=== PATIENT | male | born 1945 | race Caucasian/White ===

== ENCOUNTER 2018-04-05 10:13 | Inpatient (IN) ==
--- NOTE | 2018-04-04 17:50 | Discharge Summary ---
<Rima Trevino E - Last Filed: 04/04/18 17:47> Date of Encounter: 04/04/18 - Discharge Diagnosis (1) Status post right hip replacement Priority: Primary Status: Acute (2) Arthritis of right hip Priority: Primary Status: Chronic (3) Hypertension Priority: Secondary Status: Chronic Qualifiers: Hypertension type: unspecified Qualified Code(s): I10 - Essential (primary ) hypertension (4) Chronic pain Priority: Secondary Status: Acute Qualifiers: Chronic pain type: other chronic pain Qualified Code(s): G89.29 - Other chronic pain (5) GERD (gastroesophageal reflux disease) Priority: Secondary Status: Chronic Qualifiers: Esophagitis presence: esophagitis presence not specified Qualified Code(s) : K21.9 - Gastro-esophageal reflux disease without esophagitis (6) Hyperlipidemia Priority: Secondary Status: Chronic Qualifiers: Hyperlipidemia type: unspecified Qualified Code(s): E78.5 - Hyperlipidemia , unspecified - Hospital Course Hospital course: Mr. Nagy is a 72 year old male - Time Spent with Patient Total time spent providing and/or coordinating discharge services: - Discharge Medications Home Medications: Aspirin Enteric Coated [Aspirin EC] 325 mg PO BID 10 Days #20 tablet. [Rx] Oxycodone HCl 5 mg PO Q6H PRN 7 Days #28 tablet 04/04/18 [Rx] Atorvastatin [Lipitor] 40 mg PO HS 04/05/18 [History] Diltiazem HCl [Diltiazem ER] 180 mg PO BID 04/05/18 [History] Gabapentin [Neurontin] 600 mg PO TID 04/05/18 [History] HYDROcodone/Acet 10/325 mg [[place] 10-325 mg] 1 tab PO Q8H PRN 04/05/18 [History] Lisinopril/Hydrochlorothiazide [Zestoretic 20-12.5 mg Tablet] 1 tab PO DAILY [History] Omeprazole [PriLOSEC] 40 mg PO DAILY 04/05/18 [History] Terazosin HCl 2 mg PO HS 04/05/18 [History] Terazosin [Hytrin] 5 mg PO HS 04/05/18 [History] Allergies/Adverse Reactions: 3 Allergy/AdvReac Type Severity Reaction Status Date / Time codeine AdvReac Vomiting Verified 04/05/18 10:55 Primary care physician: MAHESH Hobbs - Patient Status Disposition: Home, Self-Care Condition: Good - Discharge Instructions Follow Up With: Vanessa Burnette CNP [Primary Care Provider] - <Tarun Little Jacques - Last Filed: 04/06/18 06:15> Orders not resulted at time of discharge: Pending orders 04/05/18 01:00 XR hip complete RT [XR] Routine Hemoglobin and Hematocrit [HEME] Routine 04/05/18 10:27 US anesthesia pain block [US] Routine Date of Encounter: 04/06/18 Time of Encounter: 06:14 - Discharge Diagnosis (1) Arthritis of right hip Priority: Primary Status: Chronic (2) Hypertension Priority: Secondary Status: Chronic Qualifiers: Hypertension type: unspecified Qualified Code(s): I10 - Essential (primary ) hypertension (3) Chronic pain Priority: Secondary Status: Acute Qualifiers: Chronic pain type: other chronic pain Qualified Code(s): G89.29 - Other chronic pain (4) GERD (gastroesophageal reflux disease) Priority: Secondary Status: Chronic Qualifiers: Esophagitis presence: esophagitis presence not specified Qualified Code(s) : K21.9 - Gastro-esophageal reflux disease without esophagitis (5) Hyperlipidemia Priority: Secondary Status: Chronic Qualifiers: Hyperlipidemia type: unspecified Qualified Code(s): E78.5 - Hyperlipidemia , unspecified (6) Status post right hip replacement Priority: Primary Status: Acute (7) Acute blood loss anemia Priority: Primary Status: Acute - Hospital Course Hospital course: Mr. Nagy is a 72 year old male Status post right total hip replacement The patient had an uneventful postoperative course. They received antibiotics and physical therapy and were discharged in stable condition. There will follow -up in the office in 2 weeks. - Time Spent with Patient Total time spent providing and/or coordinating discharge services: Primary care physician: MAHESH Hobbs - Patient Status Functional capacity at discharge: uses cane/walker Overall status at discharge: patient is progressing back to baseline
[2018-04-05] MEDS ORDERED: Famotidine 20 MG/2 ML VIAL IVP ONE (10:26)
[2018-04-05] MEDS ORDERED: Pregabalin 75 MG CAPSULE PO ONE (10:27)
[2018-04-05] MEDS ORDERED: Ringers Solution, Lactated 1,000 ML IVC SCH (10:30)
--- NOTE | 2018-04-05 10:34 | History & Physical Report ---
Date of Encounter: 04/05/18 Time of Encounter: 10:33 24 Hour HP Update - Instructions Instructions: If the History and Physical is less than 30 days old and was completed prior to A.M. admission and or procedure and has NOT been updated on calendar day of procedure please complete this update prior to performing procedure. - Update Patient reports changes in Medical Condition: No Changes in examination, assessment, or condition: No Changes in Medication: No Preop tests/diagnostics Reviewed: Yes Surgery Remains Indicated: Yes Consent for Planned Operative Procedure(s) Verified: Yes - Pre-Operative Checklist Preoperative Checklist Indicated: No Prophylactic Antibiotic Ordered: Yes Is VTE Prophylaxis Indicated?: Yes
[2018-04-05] MEDS ORDERED: CeFAZolin Syr 2,000MG/20 ML 2,000 MG/20 ML SYRINGE IVPB ONE (10:35)
[2018-04-05] MEDS ORDERED: Albuterol 2.5 MG/3 ML NEBULIZER IH ONE (10:35)
--- NOTE | 2018-04-05 10:52 | Anesthesia Evaluation PreOp ---
Date of Encounter: 04/05/18 Time of Encounter: 11:00 - Past History Planned Operation: Rt THR Cardiac History: HTN, Hyperlipidemia, Arrhythmia (on Diltiazem) Pulmonary History: Denies Any Significant HX ELECTRICAL SYSTEMS DESIGN ENGINEER History: Denies Any Significant HX Other Medical History: GERD Anesthesia History: No Prior Anesthetic Complications Alcohol Use: none, heavy Drug use: none Medications and Allergies Atorvastatin [Lipitor] 40 mg PO HS 12/31/15 [History] Diclofenac Sodium [Voltaren] 75 mg PO DAILY 12/31/15 [History] Diltiazem HCl [Cardizem LA] 360 mg PO DAILY 12/31/15 [History] Gabapentin [Neurontin] 600 mg PO TID 12/31/15 [History] Lisinopril-HCTZ 20-12.5 [Prinzide 20-12.5] 1 each PO DAILY 12/31/15 [History] Omeprazole [PriLOSEC] 40 mg PO DAILY 12/31/15 [History] Terazosin [Hytrin] 2 mg PO HS 12/31/15 [History] Aspirin Enteric Coated [Aspirin EC] 325 mg PO BID 10 Days #20 tablet. [Rx] Oxycodone HCl 5 mg PO Q6H PRN 7 Days #28 tablet 04/04/18 [Rx] 3 Allergy/AdvReac Type Severity Reaction Status Date / Time codeine Allergy See Verified 12/31/15 18:55 Comments - Meds/Allergy Pre-op Review Medications Reviewed: Yes Allergies Reviewed: Yes Beta Blockers on Current Med List: No Anesthesia Results - Labs Laboratory Tests 03/29/18 03/29/18 15:55 15:55 Hgb 13.1 Hct 38.3 Plt Count 163 Sodium 139 Potassium 3.9 BUN 14 Creatinine 1.22 - Imaging EKG: report reviewed (SR) Anesthesia Exam O2 Sat Height 1.65 m Height 1.65 m Height 1.65 m Weight 76.657 kg Weight 76.657 kg Weight 76.657 kg O2 Sat by Pulse Oximetry 95 Vital Signs Temp Pulse Resp BP Pulse Ox 98.0 F 100 18 133/92 95 04/05/18 10:44 04/05/18 10:44 04/05/18 10:44 04/05/18 10:44 04/05/18 10:44 Height: 5'5 Weight: 169 lbs NPO (# of Hours): MN Pain Scale: 0 - HEENT Pupil (Motor): Pupils equal, EOMI Mallampati: III Teeth: Edentulous Oral Opening: Less than or equal to 3 - ELECTRICAL SYSTEMS DESIGN ENGINEER LOC: Oriented ELECTRICAL SYSTEMS DESIGN ENGINEER Motor: Normal RUE, Normal LUE, Normal RLE, Normal LLE, Normal Face ELECTRICAL SYSTEMS DESIGN ENGINEER Sensory: Normal: RUE, LUE, RLE, LLE, Face - Cardiac Rhythm: Regular Murmur: None JVD: No Carotid Bruit: No - Pulmonary Breath Sounds: bilateral Clear Respiratory Effort: Symmetrical Anesthesia Assess/Plan ASA Score: [address] Scale for Level of Consciousness: Cooperative, oriented, and tranquil Anesthetic Plan: General, Regional Monitoring Plan: Standard Monitors Recovery Plan: PACU (Discussed GA and RA (Fascia Iliaca Block), agrees to proceed)
[2018-04-05] MEDS ORDERED: Tetracaine/PF 20 MG/2 ML AMPUL ONE (11:03)
[2018-04-05] MEDS ORDERED: Ethanol\\Acetic Acid\\Na Ace\\Ben 1,000 ML IRRIG.SOLN IR ONE (11:32)
--- NOTE | 2018-04-05 12:08 | Anesthesia Procedures ---
Date of Encounter: 04/05/18 Time of Encounter: 10:20 Procedures: Anesthesia - Nerve Block Procedure Date: 04/05/18 Time: 12:00 Allergies/Adv Reactions: NKDA Pre-op Diagnosis: Rt Hip OA Surgical Procedure: Rt Total Hip Replacement Checklist: Correct Patient Identifier Correct side: Right Blood Thinner: No Monitor Applied: EKG, BP, Pulse Oximetry Supplemental Oxygen via Nasal Cannula (L/min): 2 Sedation: Versed (mg): 2 Sedation: Fentanyl (mcg): 50 Indication: Post Op Analgesia Pre-op Neuro Deficits: No Block Type: Other (Fascia Iliaca) Catheter placed: No Depth at skin (cm): 2 Sterile Technique: Yes Ultrasound used: Yes Anatomy identified: Yes Visual spread of Local: Yes Neuro Stimulation: No Blood on Needle Aspiration: No Smooth Injection of Local: Yes Pain with Injection of Local: No Prep: Chlorhexadine Needle: 22 x 50 mm Stimuplex Local: Tetracaine (20mg), Ropivacaine (0.25) Volume (cc): 60 Number of Attempts: 1 Complications: None/effective block Vitals: Vital Signs/O2 Sat/Glucose, Most Current Temp Pulse Resp BP Pulse Ox 04/05/18 11:52 82 16 134/87 100 04/05/18 10:44 98.0 F 100 18 133/92 95
[2018-04-05] MEDS ORDERED: *HR* PHENYLEPHRINE 1,000 MCG/10 ML SYRINGE IVP ONE (12:38)
[2018-04-05] MEDS ORDERED: *HR* Propofol 200 MG/20 ML VIAL IVP ONE ×2 (12:38→12:41)
[2018-04-05] MEDS ORDERED: *HR* Midazolam HCl 2 MG/2 ML VIAL ONE ×3 (12:38→12:41)
[2018-04-05] MEDS ORDERED: *HR* FentaNYL (PF) 100 MCG/2 ML VIAL ONE ×3 (12:38→12:41)
[2018-04-05] MEDS ORDERED: EPHEDrine 50 MG/ML VIAL ONE (12:38)
[2018-04-05] MEDS ORDERED: Lidocaine -MPF 2% 2 ML VIAL ONE ×2 (12:38→12:41)
[2018-04-05] MEDS ORDERED: *HR* Succinylcholine 200 MG/10 ML VIAL IVP ONE (12:41)
[2018-04-05] MEDS ORDERED: Ondansetron 4 MG/2 ML VIAL IVP PRN ×2 (12:44→14:35)
[2018-04-05] MEDS ORDERED: *HR* OxyCODONE Immed Rel 5 MG TABLET PO PRN (12:44)
[2018-04-05] MEDS ORDERED: Dexamethasone 4 MG/ML VIAL ONE (12:56)
--- NOTE | 2018-04-05 13:28 | Orthopedic Operative Note ---
Date of procedure: 04/05/18 Pre-op diagnosis: Right hip arthritis Post-op diagnosis: same Procedure: Procedure: Right Total Hip Replacment robotic-assisted Estimated blood loss: 200 cc Hardware: Metal and polyethylene replacement. Phyllis DM Cup: 54 cup Femoral size 7 stem Head: 12 head with Laura Procedural Notes: Grade 4 arthritic changes femoral head acetabular socket, procedure performed with robotic assistance. Operative leg 6 mm shorter as measured by preoperative CT Operative procedure: The patient was brought to the operating room and placed on the operating room table. After general anesthesia was administered the patient was placed in the lateral decubitus position with the operative leg up. All pressure points were padded appropriately and the head was stabilized in the neutral position. The operative extremity was prepped and draped in the sterile surgical fashion patient received IV antibiotic prior to skin incision. 3 Steinmann pins were placed in the iliac crest 3 cm proximal to the anterior superior iliac spine this was for the robotic-assisted sensor. This was done through a small 2 cm incision. A standard posterior approach is made to the operative hip, the incision was made through the skin and subcutaneous tissue hemostasis was obtained with Bovie cautery. Using careful sharp dissection the fascia was identified and incised exposing the external rotators. The femoral checkpoint was placed leg length was measured at this time utilizing robotic assistance. The external rotators were released off the greater trochanter and tagged with # 2 FiberWire suture. The capsule was T'd open and the hip was brought into internal rotation. Patient noted to have grade 4 arthritic changes femoral head. The femoral neck cut was made at the appropriate level roughly Xmm proximal to the lesser trochanter aced on preoperative templating. An anterior capsulotomy was performed for the anterior retractor. Soft tissues removed from the acetabulum. Patient noted to have grade 4 arthritic changes acetabulum. The acetabulum checkpoint was placed confirmed. The acetabulum was then mapped with robotic assistance. Based on the preoperative plan the acetabulum was reamed in one step with a 53 reamer. The 54 acetabulum was impacted with robotic assistance and 40 degrees of abduction and 20 degrees of anteversion. The hip was brought back in to internal rotation and prepared with the farebox repairer followed by the canal finder followed by the reaming process to a size 78 broaching process in 20 degrees anteversion. It was broached up to the appropriate size 8. Trial reduction revealed leg lengths close to normal. The femoral implant was impacted in place in 20 degrees of anteversion. Trial reduction found the hip to be stable with 7 head and Laura. The trials were removed and the real implants were impacted in place. The hip was reduced, patient had robotic confirmed leg length of 8 mm longer than the contralateral side. The hip had excellent stability with forward flexion to 90 degrees adduction of 30 degrees and internal rotation of 60 degrees. The hip had no shuck. The hips after 2 minutes with a antibacterial solution. The PA close the hip. It was irrigated out with 2 L of pulse irrigation. The checkpoints were removed , Steinmann pins were removed. The hip was closed by the PA. The deep tissue was irrigated and closed deep with #1 PDS suture superficially with 0 PDS suture and skin was closed with Dermabond and zip tie. The patient was placed in a sterile dressing and abduction pillow. The patient was extubated and transferred to the recovery room in stable condition. Anesthesia: GETA Surgeon: Tarun Little Was there an store assistant present: Yes Roof Truss Detailer: Nikki Jackson Estimated blood loss (cc): 200 Condition: stable Disposition: PACU
[2018-04-05] MEDS ORDERED: Lidocaine -MPF 4% 5 ML AMPUL ONE (13:29)
[2018-04-05] MEDS: *HR* FentaNYL (PF) 100 MCG/2 ML VIAL IVP PRN ×2 (13:55→14:05)
--- NOTE | 2018-04-05 14:34 | Anesthesia Evaluation Post Op ---
Date of Encounter: 04/05/18 Time of Encounter: 14:35 - Vital Signs Vital Signs: Vital Signs/O2 Sat/Glucose, Most Current Temp Pulse Resp BP Pulse Ox 04/05/18 14:28 98.2 F 81 16 128/70 98 04/05/18 14:18 98.2 F 82 16 128/72 98 04/05/18 14:08 97.6 F 82 16 121/72 98 04/05/18 13:58 97.8 F 86 16 118/86 97 04/05/18 13:48 97.8 F 83 12 106/88 98 04/05/18 12:07 81 16 108/74 100 04/05/18 11:52 82 16 134/87 100 04/05/18 10:44 98.0 F 100 18 133/92 95 - Lungs Lungs: Clear Ascult./Percussion - Airway Airway: Non-obstructed - Cardiovascular Regular Rate - Mental Status Mental Status: Alert & Oriented, Answers Appropriately - Pain Pain Scale: 0 - Nausea Vomiting Nausea Vomiting: Not Present - Hydration Hydration: Ice chips - Discharge PostOp Status: Transfer Patient to floor
[2018-04-05] MEDS ORDERED: MOM Conc 10 ML UD.LIQ PO PRN (14:35)
[2018-04-05] MEDS ORDERED: traMADol 50 MG TABLET PO PRN (14:35)
[2018-04-05] MEDS ORDERED: Sennosides 8.6 MG TABLET PO PRN (14:35)
[2018-04-05] MEDS ORDERED: Naloxone 0.4 MG/ML INJ IVP PRN (14:35)
[2018-04-05] MEDS ORDERED: Temazepam 15 MG CAPSULE PO PRN (14:35)
[2018-04-05] MEDS ORDERED: *HR* OxyCODONE/APAP 5/325 TABLET PO PRN (14:35)
[2018-04-05 15:33] LABS: Hematocrit 33.9 % (37.5-50.1); Hemoglobin 11.7 g/dL (12.9-16.9)
[2018-04-05] MEDS: *HR* OxyCODONE Immed Rel 5 MG TABLET PO PRN ×2 (15:35→20:36)
[2018-04-05] MEDS: Ringers Solution, Lactated 1,000 ML IVC SCH ×2 (15:42→20:37)
[2018-04-05] MEDS: Ascorbic Acid 500 MG TABLET PO SCH (17:11)
[2018-04-05] MEDS: *HR* Enoxaparin 30 MG/0.3 ML SYRINGE SQ SCH (17:12)
[2018-04-05] MEDS ORDERED: *HR* Enoxaparin 30 MG/0.3 ML SYRINGE SQ SCH (18:00)
[2018-04-06 01:05] LABS: Hematocrit 29.5 % (37.5-50.1); Hemoglobin 10.2 g/dL (12.9-16.9)
[2018-04-06 01:25] LABS: BUN/Creatinine Ratio 16 (6-26); Blood Urea Nitrogen 17 mg/dL (8-23); Calcium 8.4 mg/dL (8.6-10.3); Carbon Dioxide 26 mEq/L (23-29); Chloride 103 mEq/L (98-107); Glucose 164 mg/dL (70-105); Osmolality,Calculated 285 (280-300); Potassium 4.1 mEq/L (3.5-5.1); Sodium 135 mEq/L (136-145); eGFR For African Americans > 60 (> 60); eGFR For Non-African Americans > 60 (> 60)
[2018-04-06] MEDS: *HR* Enoxaparin 30 MG/0.3 ML SYRINGE SQ SCH ×2 (04:51→17:20)
[2018-04-06] MEDS: *HR* OxyCODONE Immed Rel 5 MG TABLET PO PRN ×3 (04:54→21:28)
--- NOTE | 2018-04-06 06:16 | Orthopedics Progress Note ---
Date of Encounter: 04/06/18 Time of Encounter: 06:16 - Assessment and Plan (1) Arthritis of right hip Current Visit: No Status: Chronic (2) Hypertension Current Visit: No Status: Chronic Qualifiers: Hypertension type: unspecified Qualified Code(s): I10 - Essential (primary ) hypertension (3) Chronic pain Current Visit: No Status: Acute Qualifiers: Chronic pain type: other chronic pain Qualified Code(s): G89.29 - Other chronic pain (4) GERD (gastroesophageal reflux disease) Current Visit: No Status: Chronic Qualifiers: Esophagitis presence: esophagitis presence not specified Qualified Code(s) : K21.9 - Gastro-esophageal reflux disease without esophagitis (5) Hyperlipidemia Current Visit: No Status: Chronic Qualifiers: Hyperlipidemia type: unspecified Qualified Code(s): E78.5 - Hyperlipidemia , unspecified (6) Status post right hip replacement Current Visit: No Status: Acute (7) Acute blood loss anemia Current Visit: Yes Status: Acute Subjective Interval history: Patient was seen this morning doing well without complaints. Afebrile vital signs stable. Operative extremity: Neurovascularly intact Dressing clean dry and intact Calves nontender Assessment and plan: Continue with postoperative care Hemoglobin 10.2 discharged today Objective Vital signs: Vital Signs Temp Pulse Resp BP Pulse Ox 04/06/18 04:50 99.1 F 96 17 134/87 96 04/05/18 23:48 98.2 F 105 17 109/75 97 04/05/18 19:10 98.2 F 107 17 124/82 96 04/05/18 18:03 98.1 F 106 18 132/70 97 04/05/18 17:00 97.7 F 104 18 115/77 99 04/05/18 16:00 97.7 F 95 18 126/80 91 04/05/18 15:38 97.5 F L 85 18 135/88 96 04/05/18 15:37 97.5 F L 85 18 135/88 96 04/05/18 15:04 94 04/05/18 14:42 97.1 F L 84 14 123/77 100 04/05/18 14:28 98.2 F 81 16 128/70 98 04/05/18 14:18 98.2 F 82 16 128/72 98 04/05/18 14:08 97.6 F 82 16 121/72 98 04/05/18 13:58 97.8 F 86 16 118/86 97 04/05/18 13:48 97.8 F 83 12 106/88 98 04/05/18 12:07 81 16 108/74 100 04/05/18 11:52 82 16 134/87 100 04/05/18 10:44 98.0 F 100 18 133/92 95 Intake and Output 04/05/18 04/05/18 04/06/18 15:59 23:59 07:59 Intake Total 320 / 320 1100 / 1100 Output Total 200 / 200 300 / 300 Balance 120 / 120 1100 / 1100 -300 / -300 Intake: IV Fluids 320 / 320 1100 / 1100 Lactated Ringers 1,000 ML @ 75 300 / 300 1000 / 1000 mls/hr IVC .[id number] [facility] Rx#: [id number] Ancef Syringe 2,000 MG/20 ML 2, 20 / 20 000 mg In 20 ml @ 200 mls/hr IVPB PREOP ONE Rx#:[id number] Ancef 2,000 MG In 0.9 % Sodium 100 / 100 Chloride 100 ML @ 200 mls/hr IVPB Q8H [facility] Rx#:[id number] Output: Urine 300 / 300 Estimated Blood Loss 200 / 200 Other: # Voids 1 Weight 76.657 kg - Labs CBC & BMP: 04/06/18 00:34 04/06/18 00:34 Labs: Abnormal lab results Hgb 10.2 g/dL (12.9-16.9) L D 04/06/18 00:34 Hct 29.5 % (37.5-50.1) L 04/06/18 00:34 Sodium 135 mEq/L (136-145) L 04/06/18 00:34 Glucose 164 mg/dL (70-105) H 04/06/18 00:34 Calcium 8.4 mg/dL (8.6-10.3) L 04/06/18 00:34 - VTE Documentation of Mechanical Device: Venous foot pump, device Consult Discharge Plan - Plan Referrals: Vanessa Burnette, VIDEO GAME DEVELOPER [Primary Care Provider] -
[2018-04-06] MEDS: Ascorbic Acid 500 MG TABLET PO SCH ×2 (09:22→17:20)
[2018-04-06] MEDS: Multivit/Ca/Min/Fe/FA 1 TAB TABLET PO SCH (09:22)
--- NOTE | 2018-04-06 11:22 | Event Note ---
Date of Encounter: 04/06/18 Time of Encounter: 11:21 PCR- POD#1 status post right total hip replacement Little 04/05/18 PCR - Patient seen at bedside. Labwork and medications reviewed. 04/05: H/H 10.2/29.5 Pain control: Adequate - adding lidoderm patches to aid in local pain relief Participating in PT. Recommending HH vs ECF. All questions and concerns addressed. Educated on use of incentive spirometer, ambulation, and hydration. Patient educated on post-operative restrictions and care. Addressed: see above. D/C plan: ECF pending authorization
[2018-04-06] MEDS: Ringers Solution, Lactated 1,000 ML IVC SCH (17:27)
[2018-04-07 01:23] LABS: Hemoglobin 8.2 g/dL (12.9-16.9)
[2018-04-07 01:36] LABS: BUN/Creatinine Ratio 20 (6-26); Blood Urea Nitrogen 22 mg/dL (8-23); Calcium 8.4 mg/dL (8.6-10.3); Carbon Dioxide 27 mEq/L (23-29); Chloride 102 mEq/L (98-107); Glucose 107 mg/dL (70-105); Osmolality,Calculated 282 (280-300); Potassium 4.1 mEq/L (3.5-5.1); Sodium 134 mEq/L (136-145); eGFR For African Americans > 60 (> 60); eGFR For Non-African Americans > 60 (> 60)
[2018-04-07] MEDS: *HR* OxyCODONE Immed Rel 5 MG TABLET PO PRN ×3 (04:42→17:29)
[2018-04-07] MEDS: *HR* Enoxaparin 30 MG/0.3 ML SYRINGE SQ SCH ×2 (04:43→17:29)
[2018-04-07] MEDS ORDERED: Furosemide 20 MG/2 ML VIAL IVP ONE (06:23)
--- NOTE | 2018-04-07 06:24 | Orthopedics Progress Note ---
Date of Encounter: 04/07/18 Time of Encounter: 06:23 - Assessment and Plan (1) Arthritis of right hip Current Visit: No Status: Chronic (2) Hypertension Current Visit: No Status: Chronic Qualifiers: Hypertension type: unspecified Qualified Code(s): I10 - Essential (primary ) hypertension (3) Chronic pain Current Visit: No Status: Acute Qualifiers: Chronic pain type: other chronic pain Qualified Code(s): G89.29 - Other chronic pain (4) GERD (gastroesophageal reflux disease) Current Visit: No Status: Chronic Qualifiers: Esophagitis presence: esophagitis presence not specified Qualified Code(s) : K21.9 - Gastro-esophageal reflux disease without esophagitis (5) Hyperlipidemia Current Visit: No Status: Chronic Qualifiers: Hyperlipidemia type: unspecified Qualified Code(s): E78.5 - Hyperlipidemia , unspecified (6) Status post right hip replacement Current Visit: No Status: Acute (7) Acute blood loss anemia Current Visit: Yes Status: Acute Subjective Interval history: Patient was seen this morning doing well without complaints. Afebrile vital signs stable. Operative extremity: Neurovascularly intact Dressing clean dry and intact Calves nontender Assessment and plan: Continue with postoperative care Hemoglobin 8.2 discharged held secondary to placement transfuse 2 units Objective Vital signs: Vital Signs Temp Pulse Resp BP Pulse Ox 04/06/18 23:21 98.1 F 96 14 114/70 93 04/06/18 18:48 99.1 F 90 16 137/84 97 04/06/18 14:58 98.5 F 98 14 103/65 96 04/06/18 11:05 98.2 F 98 17 102/61 95 04/06/18 06:58 98.1 F 92 18 104/69 96 Intake and Output 04/06/18 04/06/18 04/07/18 15:59 23:59 07:59 Intake Total 950 / 950 500 / 500 Output Total 800 / 800 650 / 650 Balance 950 / 950 -300 / -300 -650 / -650 Intake: IV Fluids 950 / 950 Lactated Ringers 1,000 ML @ 75 950 / 950 mls/hr IVC .[id number] Rx#: [id number] Oral 0 / 0 500 / 500 Output: Urine 800 / 800 650 / 650 Other: Meal Lunch Dinner Percent of Meal Consumed 50% 0% - Labs CBC & BMP: 04/07/18 00:55 04/07/18 00:55 Labs: Abnormal lab results Hgb 8.2 g/dL (12.9-16.9) L D 04/07/18 00:55 Hct 24.0 % (37.5-50.1) L 04/07/18 00:55 Sodium 134 mEq/L (136-145) L 04/07/18 00:55 Glucose 107 mg/dL (70-105) H 04/07/18 00:55 Calcium 8.4 mg/dL (8.6-10.3) L 04/07/18 00:55 - VTE Documentation of Mechanical Device: Venous foot pump, device Consult Discharge Plan - Plan Additional Instructions: Discharge Instructions: Total Hip Replacement Please call [facility] ([phone]), your Primary Care Physician, or report to the Emergency Room if you have any of the following symptoms: Nausea, vomiting, fever greater that 101.5, swelling, chest pain, shortness of breath, increased pain/redness/drainage/odor for your incision site, numbness/ tingling, or any other concerning symptoms. ACTIVITY:Weight-bearing as tolerated for 8 weeks with hip dislocation precautions that physical therapy taught you. You may progress as tolerated under the guidance of your physical therapist. You do not need to sleep with a pillow between your legs. You can also seep on the operative side or on your stomach. MEDICATIONS: Upon discharge resume your home medications. Take all the medications as prescribed. Take a stool softener if taking narcotic pain medications. Stool softeners are only effective if you drink enough fluids. Drink 6-8 glass of water or fluids a day, unless this is not allowed for another health problem. Despite using stool softeners, if you haven't had a bowel movement in 3 days, please switch to a gentle laxative. Gentle laxatives are sold over the counter. You should have a bowel movement within 24 hours, if not call the office. You will be discharged from the hospital with a prescription for pain medication. You are encouraged to decrease the use of narcotic pain medication as tolerated. Should you require a refill, please call the office. [facility] prescribes narcotic pain medication for only 4-6 weeks after surgery. If you require pain medication beyond this time period, you may be referred to your Primary Care Physician or to the Pain Clinic for further evaluation. Plan ahead for refills on pain medication as many narcotics either need to be picked up at the office or mailed. It is best to call 48-72 hours in advance of needing a prescription refill so you don't run out of medication. To help control the post-operative pain, you may take NSAIDs (Aleve,Advil, Motrin, ibuprofen, naprosyn) or Tylenol as prescribed on the bottle in addition to the pain medication. ANTICOAGULATION (blood thinners): Continue your Aspirin, Lovenox or Coumadin as prescribed to help prevent a blood clot in the leg or in the lungs. As long as your incision remains dry and you tolerate the NSAIDs (Aleve, Advil, Motrin, Ibuprofen, Naprosyn), it is OK to use the NSAIDS while you are taking your anticoagulation medication. Should your incision start to drain, stop the NSAID and contact our office. Common symptoms of blood clot in the legs include: localized pain, swelling, calf tenderness, redness or discoloration of the skin. Blood clot in the lung symptoms include: shortness of breath, rapid pulse, sweating, and chest pain that worsens with deep breathing, coughing up blood, lightheadedness, feelings of anxiety. If you experience any of these symptoms notify your physician immediately, go to the emergency room, or if having trouble breathing, call 911. WOUND CARE: Leave the dressing on for 7 to 10days. You may change the dressing if it is saturated greater than 50%. Do not get the dressing wet at anytime. Wash your hands with antibacterial soap, rinse and dry prior to any wound care. If you have lizandro the visiting nurse or rehab facility can remove the stapes 10-14 days after surgery and place steri-strips across the wound. Leave the steri-strips in place until they fall off on their own. You may let water from the shower run on top of the steri-strips. If you do not have a visiting nurse or rehab facility, you will need to return to the office at 10-14 days for the lizandro to be removed. If you have itching or redness around the dressing call the office. FOLLOW-UP: Please follow up with your surgeon in the orthopedic clinic in 6 weeks from the day of surgery. If you have lizandro that need to be removed, you will need to come back to the office in 10-14 days from the day of surgery. Referrals: Tarun Little MD [Partnered Physician] - 05/05/18 4:40 pm Nikki Jackson PAC [Physician Upper Inspector] - 04/15/18 9:00 am Vanessa Burnette CNP [Primary Care Provider] - Anthony Hwang MD [Partnered Physician] - 05/14/19 10:20 am
[2018-04-07] MEDS: Multivit/Ca/Min/Fe/FA 1 TAB TABLET PO SCH (08:50)
[2018-04-07] MEDS: Ascorbic Acid 500 MG TABLET PO SCH ×2 (08:50→17:29)
[2018-04-07] MEDS ORDERED: 0.9 % Sodium Chloride 250 ML ONE ×2 (09:43→12:20)
[2018-04-07 15:14] VITALS: BP 117/71
--- NOTE | 2018-04-07 17:27 | Event Note ---
Date of Encounter: 04/07/18 Time of Encounter: 11:30 PCR- POD#2 status post right total hip replacement Little 04/05/18 PCR - Patient seen at bedside. Patient's spouse and 2 sons were at the bedside. Labwork and medications reviewed. 04/06: H/H 10.2/29.5 04/07 8.2/24.0 - patient receiving 2 units of PRBCs today prior to discharge Pain control: Adequate - lidoderm patches aiding in local pain relief Participating in PT. Recommending ECF. All questions and concerns addressed. Educated on use of incentive spirometer, ambulation, and hydration. Patient educated on post-operative restrictions and care. Addressed: see above. D/C plan: ECF today
--- NOTE | 2018-04-07 17:30 | Physician Discharge Referral ---
ExtendedCare Referral Info Transfer To: [facility] Provider in Charge: Dr Tarun Little - Diagnosis (1) Status post right hip replacement Priority: Primary Status: Acute (2) Arthritis of right hip Priority: Primary Status: Chronic (3) Hypertension Priority: Secondary Status: Chronic (4) Chronic pain Priority: Secondary Status: Acute (5) GERD (gastroesophageal reflux disease) Priority: Secondary Status: Chronic (6) Hyperlipidemia Priority: Secondary Status: Chronic (7) Acute blood loss anemia Priority: Secondary (Patient administered 2 units of PRBCs on 04/07/18 - repeat H &H ordered for following transfusion.) Status: Resolved Expected Duration of Placement: Less than 30 days Prognosis: Good Aware of Diagnosis: Patient Aware of Prognosis: Patient - Transfer Medications Home Medications: Aspirin Enteric Coated [Aspirin EC] 325 mg PO BID 10 Days #20 tablet. [Rx] Oxycodone HCl 5 mg PO Q6H PRN 7 Days #28 tablet 04/04/18 [Rx] Atorvastatin [Lipitor] 40 mg PO HS 04/05/18 [History] Diltiazem HCl [Diltiazem ER] 180 mg PO BID 04/05/18 [History] Gabapentin [Neurontin] 600 mg PO TID 04/05/18 [History] HYDROcodone/Acet 10/325 mg [Mulino 10-325 mg] 1 tab PO Q8H PRN 04/05/18 [History] Lisinopril/Hydrochlorothiazide [Zestoretic 20-12.5 mg Tablet] 1 tab PO DAILY [History] Omeprazole [PriLOSEC] 40 mg PO DAILY 04/05/18 [History] Terazosin HCl 2 mg PO HS 04/05/18 [History] Terazosin [Hytrin] 5 mg PO HS 04/05/18 [History] Allergies/Adverse Reactions: 3 Allergy/AdvReac Type Severity Reaction Status Date / Time codeine AdvReac Vomiting Verified 04/05/18 10:55 - Respiratory Orders Smoking Cessation: Smoking cessation has been advised. For more information, call the [place] Tobacco Quit Line at 0-408-QPFU-NOW. - Ancillary Orders May use pressure relief devices daily prn, May go on AMARA w/family/respon democrat w /meds at nurse discretion PRN, May consult with Dentist, Torpedo Man, Wrapper Off PRN - Mobility Orders Chair, Ambulate - Rehabiliation Orders Rehab Potential: Good Rehab Orders: Evaluation for Physical Therapy, Evaluation for Occupational Therapy Other: Total Hip replacement Precautions Apply cold therapy 3-6x/day for 20 minutes at a time. Encourage ambulation throughout the day and incentive spirometer 10x/hour. Elevate affected extremity as tolerated. Brace: Wear hip abduction pillow when laying/sleeping - Treatments Skin tear care topically daily PRN per policy List/Other: Opsite placed. Keep dressing intact until first follow up appointment. If greater than 50% saturated, notify office, remove dressing and place appropriate dressing back in place. Leave Zipline intact. Opsite dressing is water resistant, not water-proof. OK to shower, but do not get dressing wet. - Diet Orders Regular CERTIFICATION: I certify that the transfer of the above named patient to an Extended Care Facility is necessary for the continuing treatment of the diagnosis listed. The above information is true and accurate reflection of patient's current condition. Confidential - Redisclosure prohibited without a patient's written consent.
[2018-04-07 18:05] LABS: Hematocrit 28.6 % (37.5-50.1)
[2018-04-07 18:07] LABS: Hemoglobin 9.8 g/dL (12.9-16.9)
== END 2018-04-07 19:15 | DRG 301 ==
LOC: SAMDAY 10:13 → 3NENU 14:32
PROVIDERS: ADMIT Orthopaedic Surgery; ATTEND Orthopaedic Surgery